=== PATIENT | male | born 1935 | race Caucasian/White ===

== ENCOUNTER → 2016-07-31 | Outpatient (CLI) | payer OTHER | END | disposition home or self-care (01) | LOC: PCVCCLINIC 09:38 | PROVIDERS: ATTEND Internal Medicine | DX: I65.21 Occlusion and stenosis of right carotid artery (principal); I25.10 Atherosclerotic heart disease of native coronary artery without angina pectoris; I44.7 Left bundle-branch block, unspecified; I10 Essential (primary) hypertension; E78.5 Hyperlipidemia, unspecified | CPT/HCPCS: 80061; 93005; 93880; G0463 ==

== ENCOUNTER → 2017-08-05 | Outpatient (CLI) | payer BC, OTHER | END | disposition home or self-care (01) | LOC: PCVCCLINIC 10:40 | DX: I25.10 Atherosclerotic heart disease of native coronary artery without angina pectoris (principal); I10 Essential (primary) hypertension; I48.0 Paroxysmal atrial fibrillation; E78.2 Mixed hyperlipidemia; I65.23 Occlusion and stenosis of bilateral carotid arteries; I44.7 Left bundle-branch block, unspecified; F17.210 Nicotine dependence, cigarettes, uncomplicated; R94.31 Abnormal electrocardiogram [ECG] [EKG]; Z79.82 Long term (current) use of aspirin; Z79.899 Other long term (current) drug therapy | CPT/HCPCS: 93005; G0463 ==

== ENCOUNTER → 2018-02-10 | Outpatient (CLI) | payer BC | END | disposition home or self-care (01) | LOC: PCVCCLINIC 11:25 | PROVIDERS: ATTEND Internal Medicine | DX: I25.10 Atherosclerotic heart disease of native coronary artery without angina pectoris (principal); R94.31 Abnormal electrocardiogram [ECG] [EKG]; I10 Essential (primary) hypertension; I48.0 Paroxysmal atrial fibrillation; E78.5 Hyperlipidemia, unspecified; I65.23 Occlusion and stenosis of bilateral carotid arteries; I44.7 Left bundle-branch block, unspecified; E78.00 Pure hypercholesterolemia, unspecified; F17.210 Nicotine dependence, cigarettes, uncomplicated; Z72.89 Other problems related to lifestyle; Z79.01 Long term (current) use of anticoagulants; Z79.82 Long term (current) use of aspirin; Z79.899 Other long term (current) drug therapy | CPT/HCPCS: 80061; 93005; G0463 ==

== ENCOUNTER → 2018-08-11 | Outpatient (CLI) | payer BC ==
[~2018-08-11] MED LIST: REGADENOSON 0.4 MG/5 ML DISP.SYRIN. IV ONE
--- NOTE | 2018-08-11 10:18 | PCVCIMAG ---
APPROVED REPORT Indications Stenosis Risk Factors Hypertension: Hyperlipidemia Surgery/Intervention Endarterectomy: left Doppler Spectral Velocity Analysis PSV / EDVPSV / EDV ECA (R) 76 / 0 cm/sECA (L) 110 / 5 cm/s dICA (R) 71 / 13 cm/sdICA (L) 68 / 15 cm/s Taniya (R) 68 / 16 cm/smICA (L) 68 / 12 cm/s pICA (R) 69 / 13 cm/spICA (L) 61 / 8 cm/s Bulb (R) 44 / 10 cm/sBulb (L) 65 / 6 cm/s dCCA (R) 56 / 10 cm/sdCCA (L) 78 / 10 cm/s mCCA (R) 54 / 8 cm/smCCA (L) 82 / 11 cm/s Vert (R) 52 / 0 cm/sVert (L) 87 / 15 cm/s ICA/CCA 1.27 ICA/CCA 0.83 Real Time B-Mode Imaging Vert. (R)AntegradeVert. (L)Antegrade Findings The right carotid bulb has moderate calcified plaque. The right proximal internal carotid artery shows <40% stenosis. The right common carotid artery shows no significant stenosis. The right external carotid artery shows no significant stenosis. The left carotid bulb has minimal plaque. The left proximal internal carotid artery shows no significant stenosis. The left common carotid artery shows no significant stenosis. The left external carotid artery shows no significant stenosis. Conclusion 1. Right internal carotid artery stenosis (<40%) 2. Left internal carotid artery plaquing; prior carotid endarterectomy without stenosis 3. Antegrade vertebral flow.
--- NOTE | 2018-08-11 12:19 | PCVCIMAG ---
APPROVED REPORT Imaging Protocol: Rest Tc-99m/Stress Tc-99m 1 day Study performed: 08/11/2018 08:53:48 Indication: CAD , Paroxysmal Atrial Fibrillation, LBBB Patient Location: Out-Patient Stress Nurse: Susan Frankel RN, Anisha Fabian RN NC Tech:OKSANA WrightMT Ht: 5 ft 6 in Wt: 151 lbs BSA: 1.77 m2 HR: 54 bpm BP: 179/77 mmHg BMI: 24.3 Rhythm: Sinus Bradycardia, LBBB Medical History Medical History: HTN, Hyperlipidemia, CEA, Current Smoker (Cigars) Medications: ASA, Atorvastatin, HCTZ, Meloxicam, Metoprolol, KCL, Xarelto Allergies: No known drug allergies Cardiac Risk Factors: Age Pretest Chest Pain Characteristics: No chest pain Exercise History: Sedentary Physical Disabilities: Uses cane for ambulation Meds Held (24 hrs): Metoprolol Resting Data Rest SPECT myocardial perfusion imaging was performed in supine position 45 minutes following the intravenous injection of 10.4 mCi of Tc-99m Sestamibi. Time of rest injection: 0900 Date: 08/11/2018 Administration Route: IV Administration Site: Right AC Pharmacologic Stress Pharmacologic stress test was performed by injecting Regadenoson 0.4 mg IV push over 10-15 seconds immediately followed by the intravenous injection of 32.1 mCi of Tc-99m Sestamibi. Time of stress injection: 1030 Date: 08/11/2018 Administration Route: IV Administration Site: Right AC Gated Stress SPECT was performed 45 minutes after stress injection. The images were gated to evaluate regional wall motion and calculate left ventricular ejection fraction. Stress Test Details Stress Test: Pharmacologic stress testing performed using 0.4 mg of regadenoson per 5 mL given IV over 10 seconds. Reason for pharmacologic stress test: Mr. Garg walks with a cane. HRMax Heart Rate (APMHR): 136 bpm Resting HR: 54 bpmTarget HR (85% APMHR): 115 bpm Max HR Achieved: 71 bpm % of APMHR: 52 Recovery HR: 69 bpm BP Resting BP: 179/77 mmHg Max BP: 165/70 mmHg Recovery BP: 129/60 mmHg ECG Resting ECG: Sinus Bradycardia, LBBB Stress ECG: Sinus Rhythm, LBBB ST Change: Nondiagnostic V-pacing or LBBB Arrhythmia: PVC's Recovery ECG: Sinus Rhythm, LBBB Recovery ST Change: Nondiagnostic V-pacing or LBBB Recovery Arrhythmia: None Clinical Reason for Termination: Completed protocol Stress Symptoms: Dyspnea, Lightheaded Exercise duration: 0 min 55 sec Symptoms resolved during recovery. Stress ECG Conclusion Clinical: Non-ischemic ECG: Non-diagnostic due to underlying LBBB Study Quality Study: Good Study Data Post stress, the left ventricular ejection was 53%.. SSS: 6 SRS: 7 SDS: 1 TID = 1.04. Perfusion No evidence of stress induced ischemia or prior myocardial infarction. Wall Motion Normal left ventricular size and function with no regional wall motion abnormalities. Nuclear Conclusion No evidence of stress induced ischemia or prior myocardial infarction. Normal left ventricular size and function with no regional wall motion abnormalities. Post stress, the left ventricular ejection was 53%. No prior study available for comparison. Interpreted by: Mauricio Painter MD Electronically Approved: 08/11/2018 12:00:32 <Conclusion> Clinical: Non-ischemic ECG: Non-diagnostic due to underlying LBBB
== END | disposition home or self-care (01) ==
LOC: PCVCIMAG 08:30
PROVIDERS: ATTEND Internal Medicine
DX: I65.23 Occlusion and stenosis of bilateral carotid arteries (principal); I48.0 Paroxysmal atrial fibrillation
CPT/HCPCS: 78452; 93017; 93880; A9500; J2785